=== PATIENT | female | born 1975 | race Two or more races ===

== ENCOUNTER 2017-01-07 18:24 | Emergency (ER) | payer OTHER ==
--- NOTE | ~2017-01-07 | CR72 ---
[facility] A Service of [facility] & [facility] RADIOLOGY TEXT RESULTS PATIENT: LISSET ARNDT LOCATION: [facility] : 73 UNIT #: [id number] AGE: [address]: Raman Steinberg MD SEX: F ORDER DR: [id number] [facility] [address] [place], [place] [address] [id number] E MR#: [id number] Acc #: [id number] NAME: LISSET ARNDT : 1975 SEX: F STUDY DATE/TIME: 01/07/2017 20:42 UNIT: [facility] ROOM: STUDY DESCRIPTION: CR Chest Single View Portable Attending Physician: Raman Steinberg M.D. Ordering Physician: Raman Steinberg M.D. Primary Care Physician: Shaheen Chen M.D. MEDICAL IMAGING REPORT This report is preliminary unless electronic signature is present EXAM AP portable chest, 01/07/2017 at 20:42 HISTORY Chest pain and congestion since yesterday. COMPARISON AP portable chest, 07/23/2012 FINDINGS No acute airspace disease. Heart size is within normal limits. No pleural effusion, pneumothorax or acute osseous abnormalities. IMPRESSION No acute chest findings. No significant change from 07/23/2012. Dictated by... Earnestine Dillard M.D. THIS IS AN ELECTRONICALLY VERIFIED REPORT Earnestine Dillard M.D. at 01/08/2017 7:01 PM LORENZO/campos TD: 01/08/2017 12:59 JOB #: [id number] MEDICAL IMAGING REPORT COPY
--- NOTE | ~2017-01-07 | CT71 ---
[facility] A Service of [facility] RADIOLOGY TEXT RESULTS PATIENT: LISSET ARNDT LOCATION: [facility] : 73 UNIT #: [id number] AGE: [address]: Raman Steinberg MD SEX: F ORDER DR: [id number] [place] [id number] [facility]. [place], [place] [address] [id number] E MR#: [id number] Acc #: [id number] NAME: LISSET ARNDT : 1975 SEX: F STUDY DATE/TIME: 01/07/2017 19:31 UNIT: [facility] ROOM: STUDY DESCRIPTION: CT Head Wo Contrast Attending Physician: Raman Steinberg M.D. Ordering Physician: Raman Steinberg M.D. Primary Care Physician: Shaheen Chen M.D. MEDICAL IMAGING REPORT This report is preliminary unless electronic signature is present EXAM CT Head, 01/07/2017 HISTORY Headache started last night. Worsening also pain in chest. TECHNIQUE This CT exam was performed with one or more of the following radiation dose reduction techniques: automatic exposure control, adjustment of mA and/or kV according to patient size, and iterative reconstruction. FINDINGS CT head performed from skull base through vertex without intravenous contrast. No prior CTs of the head for comparison. The brainstem is unremarkable. The cerebellum and cerebral hemispheres show normal locke matter-white matter differentiation. No hemorrhage. No evidence of acute cortical ischemia. The midline structures are nondisplaced. The basal ganglia are intact. The ventricles, cisterns and sulci are normal in size and contour. No intra or extraaxial mass effect or abnormal intracranial fluid collection. Visualized intraorbital soft tissues unremarkable. The visualized paranasal sinuses and mastoid air cells are clear. IMPRESSION Normal CT of the head. If the patient has ongoing neurologic symptoms, consider followup imaging, preferably with MRI if the patient is a candidate. Dictated by... Ron Browne M.D. THIS IS AN ELECTRONICALLY VERIFIED REPORT [facility] A Service of [facility] RADIOLOGY TEXT RESULTS PATIENT: LISSET ARNDT [id number] 73 UNIT #: [id number] AGE: [address]: Raman Steinberg MD SEX: F ORDER DR: Ron Browne M.D. at 01/09/2017 4:25 PM Alicia TD: 01/08/2017 11:50 JOB #: [id number] MEDICAL IMAGING REPORT COPY
--- NOTE | ~2017-01-07 | EKG ---
PATIENT: LISSET ARNDT UNIT #: [id number] Ventricular Rate: 64 BPM Atrial Rate: 64 BPM P-R Interval: 132 ms QRS Duration: 74 ms Q-T Interval: 436 ms QTC Calculation(Bezet): 449 ms P Cozad: 42 degrees Calculated R Cozad: -16 degrees Calculated T Cozad: -6 degrees Diagnosis Line: Normal sinus rhythm Diagnosis Line: Moderate voltage criteria for LVH, may be normal Diagnosis Line: variant Diagnosis Line: Borderline ECG Diagnosis Line: Diagnosis Line: Confirmed by GUI FERRER MD ([id number]) on Diagnosis Line: 01/10/2017 4:01:35 PM INTERPRETING MD: CARISSA FOURNIER
[~2017-01-07 18:24] MED LIST: ACETAMINOPHEN650 M1 PO; AMLODIPINE BESYL5 MG PO; BENICAR HCT 40-1 TAB PO; BENICAR20 MG PO; METOPROLOL SUCC25 MG PO
[2017-01-07 18:44] LABS: BASOPHIL# 0.1 X10e3 (0-0.3); BASOPHIL% 0.6 % (0-2.5); EOSINOPHIL# 0.2 X10e3 (0-0.7); EOSINOPHIL% 1.5 % (0.0-7.0); HEMATOCRIT 43.1 % (35.0-45.0); HEMOGLOBIN 14.5 gm/dL (12.0-16.0); LYMPHOCYTE# 3.3 X10e3 (1.0-3.5); LYMPHOCYTE% 32.1 % (17.0-45.0); MEAN CELL VOLUME 87.5 FL (83-96); MEAN CORPUSCULAR HEMOGLOBIN 29.4 PG (28-34); MEAN CORPUSCULAR HGB CONC 33.6 g/dL (30-36); MEAN PLATELET VOLUME 9.5 FL (6.5-11.5); MONOCYTE# 0.7 X10e3 (0-1.0); MONOCYTE% 6.7 % (3.0-12.0); NEUTROPHIL% 59.1 % (40-75); PLATELET COUNT 267 X10e3 (140-420); RED BLOOD COUNT 4.92 X10e (3.90-5.30); RED CELL DISTRIBUTION WIDTH 12.9 % (11.0-15.5); WHITE BLOOD COUNT 10.2 X10e3 (4.0-10.5)
[2017-01-07 18:53] LABS: POC - CKMB <1.0 ng/mL (0.0-7.9); POC - TROPONIN <0.05 ng/mL (<=0.05)
[2017-01-07 18:56] LABS: DIFF IND NO
[2017-01-07 19:06] LABS: ALBUMIN SERUM 4.4 g/dL (3.5-5.0); ALKALINE PHOSPHATASE 67 U/L (32-92); ALT (SGPT) 19 U/L (10-40); AST (SGOT) 18 U/L (10-42); BILIRUBIN, DIRECT 0.1 mg/dL (0.0-0.2); BILIRUBIN,INDIRECT 0.5 mg/dL (0.0-0.9); BILIRUBIN,TOTAL 0.6 mg/dL (0.2-2.0); BLOOD UREA NITROGEN 18 mg/dL (9-23); BUN/CREATININE RATIO 25.71; CARBON DIOXIDE 22 mmol/L (22-31); CHLORIDE 104 mmol/L (100-111); CREATININE SERUM 0.7 mg/dL (0.6-1.4); GLOM FILT RATE Estimated ABOVE60 mL/min (>60); GLUCOSE FASTING 86 mg/dL (70-110); POTASSIUM 4.4 mmol/L (3.5-5.1); PROTEIN TOTAL SERUM 7.8 g/dL (6.0-8.3); SODIUM 131 mmol/L (135-145)
[2017-01-07 20:12] LABS: POC - CKMB <1.0 ng/mL (0.0-7.9); POC - TROPONIN <0.05 ng/mL (<=0.05)
[2017-01-07 21:16] LABS: INFLUENZA A NEG (NEG); INFLUENZA B NEG (NEG)
== END 2017-01-07 21:30 | disposition home or self-care (01) ==
LOC: CED 18:24
PROVIDERS: Emergency Medicine
DX: R07.89 Other chest pain (principal); J06.9 Acute upper respiratory infection, unspecified; R51 Headache; Z91.041 Radiographic dye allergy status; Z88.8 Allergy status to other drugs, medicaments and biological substances
CPT/HCPCS: 36415; 70450; 71010; 80048; 80076; 82553; 84484; 84703; 85025; 87804; 93005; 99284

== ENCOUNTER 2017-02-01 22:20 | Emergency (ER) | payer OTHER ==
--- NOTE | ~2017-02-01 | CR126 ---
[facility] A Service of [facility] & [facility] RADIOLOGY TEXT RESULTS PATIENT: LISSET ARNDT LOCATION: [facility] : 73 UNIT #: [id number] AGE: [address]: Yuli Esqueda MD SEX: F ORDER DR: [id number] [facility] [address] [place], [place] [address] [id number] E MR#: [id number] Acc #: [id number] NAME: LISSET ARNDT : 1975 SEX: F STUDY DATE/TIME: 02/01/2017 22:44 UNIT: [facility] ROOM: STUDY DESCRIPTION: CR Foot Complete Min 3 View Lt Attending Physician: Yuli Esqueda M.D. Ordering Physician: Yuli Esqueda M.D. Primary Care Physician: Shaheen Chen M.D. MEDICAL IMAGING REPORT This report is preliminary unless electronic signature is present EXAM Left foot 3 views, 02/01/2017 HISTORY Foot pain after fall down stairs today. FINDINGS 3 views of the left foot demonstrate normal bone alignment. No fracture, joint space narrowing or dislocation. Moderate sized posterior and plantar calcaneal spurs. IMPRESSION 1. No acute findings. No fracture. 2. Satisfactory bone alignment. 3. Posterior and plantar calcaneal spurs. Dictated by... Donte Telles M.D. THIS IS AN ELECTRONICALLY VERIFIED REPORT Donte Telles M.D. at 02/02/2017 4:36 PM DFL/maxine TD: 02/02/2017 00:22 JOB #: [id number] MEDICAL IMAGING REPORT Page 1 of 1 COPY
--- NOTE | ~2017-02-01 | CR21 ---
[facility] A Service of [facility] & [facility] RADIOLOGY TEXT RESULTS PATIENT: LISSET ARNDT LOCATION: [facility] : 73 UNIT #: [id number] AGE: [address]: Yuli Esqueda MD SEX: F ORDER DR: [id number] [facility] [address] [place], [place] [address] [id number] E MR#: [id number] Acc #: [id number] NAME: LISSET ARNDT : 1975 SEX: F STUDY DATE/TIME: 02/01/2017 22:40 UNIT: [facility] ROOM: STUDY DESCRIPTION: CR Ankle Min 3 Views Rt Attending Physician: Yuli Esqueda M.D. Ordering Physician: Yuli Esqueda M.D. Primary Care Physician: Shaheen Chen M.D. MEDICAL IMAGING REPORT This report is preliminary unless electronic signature is present EXAM Right ankle, 3 views COMPARISON 3 views of the left ankle on the same date. INDICATIONS 41-year-old female with right ankle pain after falling down the stairs today. FINDINGS Moderate sized enthesophyte at the Achilles attachment of the calcaneus. Bones are anatomically aligned. No evidence of acute fracture. IMPRESSION 1. No acute fracture or dislocation of the right ankle. 2. Auui-vj-sgnhstmz Achilles enthesopathy. Dictated by... Kolton Menendez M.D. THIS IS AN ELECTRONICALLY VERIFIED REPORT Kolton Menendez M.D. at 02/05/2017 10:00 PM PAIGE/elaine TD: 02/02/2017 00:20 JOB #: [id number] MEDICAL IMAGING REPORT Page 1 of 1 COPY
--- NOTE | ~2017-02-01 | CR181 ---
[facility] A Service of [facility] RADIOLOGY TEXT RESULTS PATIENT: LISSET ARNDT LOCATION: [facility] : 73 UNIT #: [id number] AGE: [address]: Yuli Esqueda MD SEX: F ORDER DR: [id number] [place] [address] [facility]. [place], [place] [address] [id number] E MR#: [id number] Acc #: [id number] NAME: LISSET ARNDT : 1975 SEX: F STUDY DATE/TIME: 02/01/2017 22:31 UNIT: [facility] ROOM: STUDY DESCRIPTION: CR Lumbar Spine 2 or 3 Views Attending Physician: Yuli Esqueda M.D. Ordering Physician: Yuli Esqueda M.D. Primary Care Physician: Shaheen Chen M.D. MEDICAL IMAGING REPORT This report is preliminary unless electronic signature is present EXAM Lumbar spine, 3 views COMPARISON May 14, 2007. INDICATIONS 41-year-old female with low back pain after falling down the stairs today. FINDINGS There is nonspecific diffuse gaseous distension of small bowel and colon throughout the abdomen, perhaps reflecting ileus. Cholecystectomy. Evaluation of the lumbar spine is mildly limited by overlapping bowel gas. Lumbar spine is anatomically aligned. Mild disc height loss at L5-S1. IMPRESSION 1. No acute fracture or dislocation of the lumbar spine. 2. Mild disc height loss at L5-S1. 3. Prior cholecystectomy. 4. Diffuse gaseous distension of small bowel loops and colon throughout the abdomen, perhaps reflecting ileus. Dictated by... Kolton Menendez M.D. THIS IS AN ELECTRONICALLY VERIFIED REPORT Kolton Menendez M.D. at 02/05/2017 9:59 PM [facility] TD: 02/02/2017 00:17 JOB #: [id number] [facility] A Service of [facility] RADIOLOGY TEXT RESULTS PATIENT: LISSET ARNDT LOCATION: [facility] : 73 UNIT #: [id number] AGE: [address]: Yuli Esqueda MD SEX: F ORDER DR: MEDICAL IMAGING REPORT Page 1 of 1 COPY
--- NOTE | ~2017-02-01 | CR127 ---
[facility] A Service of [facility] & [facility] RADIOLOGY TEXT RESULTS PATIENT: LISSET ARNDT LOCATION: [facility] : 73 UNIT #: [id number] AGE: [address]: Yuli Esqueda MD SEX: F ORDER DR: [id number] [facility] [address] [place], [place] [address] [id number] E MR#: [id number] Acc #: [id number] NAME: LISSET ARNDT : 1975 SEX: F STUDY DATE/TIME: 02/01/2017 22:41 UNIT: [facility] ROOM: STUDY DESCRIPTION: CR Foot Complete Min 3 View Rt Attending Physician: Yuli Esqueda M.D. Ordering Physician: Yuli Esqueda M.D. Primary Care Physician: Shaheen Chen M.D. MEDICAL IMAGING REPORT This report is preliminary unless electronic signature is present EXAM Right foot, 3 views HISTORY Fell down stairs today. Foot pain. FINDINGS 3 views of the right foot demonstrate transverse fracture through the distal tip of the medial cuneiform extending to the base of the first metatarsal at the first TMT joint, with approximately 2 mm distal displacement of the distal fragment. Remainder of the bone alignment is satisfactory. No dislocation. No opaque soft tissue foreign body. Dictated by... Donte Telles M.D. THIS IS AN ELECTRONICALLY VERIFIED REPORT Donte Telles M.D. at 02/02/2017 4:36 PM DFL/psc TD: 02/02/2017 00:13 JOB #: [id number] MEDICAL IMAGING REPORT Page 1 of 1 COPY
--- NOTE | ~2017-02-01 | CR20 ---
[facility] A Service of [facility] & [facility] RADIOLOGY TEXT RESULTS PATIENT: LISSET ARNDT LOCATION: [facility] : 73 UNIT #: [id number] AGE: [address]: Yuli Esqueda MD SEX: F ORDER DR: [id number] [facility] [address] [place], [place] [address] [id number] E MR#: [id number] Acc #: [id number] NAME: LISSET ARNDT : 1975 SEX: F STUDY DATE/TIME: 02/01/2017 22:43 UNIT: [facility] ROOM: STUDY DESCRIPTION: CR Ankle Min 3 Views Lt Attending Physician: Yuli Esqueda M.D. Ordering Physician: Yuli Esqueda M.D. Primary Care Physician: Shaheen Chen M.D. MEDICAL IMAGING REPORT This report is preliminary unless electronic signature is present EXAM Left ankle 3 views, 02/01/2017 HISTORY Ankle pain after fall today. FINDINGS 3 views of the left ankle demonstrate normal bone alignment. No fracture, joint space narrowing or dislocation. Moderate sized posterior and plantar calcaneal spurs. IMPRESSION No acute finding. No fracture. Dictated by... Donte Telles M.D. THIS IS AN ELECTRONICALLY VERIFIED REPORT Donte Telles M.D. at 02/02/2017 4:36 PM DFWilmar/maxine TD: 02/02/2017 00:21 JOB #: [id number] MEDICAL IMAGING REPORT Page 1 of 1 COPY
--- NOTE | ~2017-02-01 | CR243 ---
[facility] A Service of [facility] & [facility] RADIOLOGY TEXT RESULTS PATIENT: LISSET ARNDT LOCATION: [facility] : 73 UNIT #: [id number] AGE: [address]: Yuli Esqueda MD SEX: F ORDER DR: [id number] [facility] [address] [place], [place] [address] [id number] E MR#: [id number] Acc #: [id number] NAME: LISSET ARNDT : 1975 SEX: F STUDY DATE/TIME: 02/01/2017 22:37 UNIT: [facility] ROOM: STUDY DESCRIPTION: CR Thoracic Spine 3 Views Attending Physician: Yuli Esqueda M.D. Ordering Physician: Yuli Esqueda M.D. Primary Care Physician: Shaheen Chen M.D. MEDICAL IMAGING REPORT This report is preliminary unless electronic signature is present EXAM Thoracic spine, 3 views, 02/01/2017 COMPARISON None. INDICATION 41-year-old female with upper back pain after falling down stairs today. FINDINGS There is multilevel moderate anterior osteophyte formation of the thoracic vertebral bodies. The thoracic spine is anatomically aligned. No evidence of acute fracture. There has been prior cholecystectomy. Nonspecific gaseous distension of multiple bowel loops in the upper abdomen. IMPRESSION No evidence of acute fracture or dislocation of the thoracic spine. Dictated by... Kolton Menendez M.D. THIS IS AN ELECTRONICALLY VERIFIED REPORT Kolton Menendez M.D. at 02/05/2017 10:06 PM Camille TD: 02/02/2017 00:12 JOB #: [id number] MEDICAL IMAGING REPORT Page 1 of 1 COPY
== END 2017-02-02 01:35 | disposition home or self-care (01) ==
LOC: CED 22:20
DX: S92.311A Displaced fracture of first metatarsal bone, right foot, initial encounter for closed fracture (principal); S29.9XXA Unspecified injury of thorax, initial encounter; S49.91XA Unspecified injury of right shoulder and upper arm, initial encounter; Z88.6 Allergy status to analgesic agent; Z88.8 Allergy status to other drugs, medicaments and biological substances; W10.9XXA Fall (on) (from) unspecified stairs and steps, initial encounter; Y92.009 Unspecified place in unspecified non-institutional (private) residence as the place of occurrence of the external cause
CPT/HCPCS: 29515; 29540; 72072; 72100; 73610; 73630; 96374; 96375; 99284; J2270; J2405

== ENCOUNTER → 2017-02-13 | Outpatient (CLI) | payer OTHER ==
--- NOTE | ~2017-02-13 | CT95 ---
[facility] A Service of [facility] & [facility] RADIOLOGY TEXT RESULTS PATIENT: LISSET ARNDT LOCATION: [facility] : 73 UNIT #: [id number] AGE: [address]: Oleg Zapien MD SEX: F ORDER DR: [id number] [facility] [address] [place], [place] [address] [id number] O MR#: [id number] Acc #: [id number] NAME: LISSET ARNDT : 1975 SEX: F STUDY DATE/TIME: 02/13/2017 10:06 UNIT: [facility] ROOM: STUDY DESCRIPTION: CT Lower Ext Rt Wo Cont Attending Physician: Oleg Zapien M.D. Referring Physician: Oleg Zapien M.D. Ordering Physician: Oleg Zapien M.D. Primary Care Physician: Shaheen Chen M.D. MEDICAL IMAGING REPORT This report is preliminary unless electronic signature is present EXAM CT right foot (direct coronal imaging) with subsequent sagittal and axial reconstructions without contrast 02/13/2017 COMPARISON Right ankle and foot radiographs 02/01/2017. HISTORY Order states right foot fracture. History sheet states patient slipped in the house on 01/30/2017. No previous surgery. TECHNIQUE This CT examination was performed with one or more of the following radiation dose reduction techniques: automatic exposure control, adjustment of mA and/or kV according to patient size, and iterative reconstruction. FINDINGS There is a nondisplaced intraarticular fracture of the dorsal corner of the medial cuneiform. The fracture fragment has a triangular configuration on the sagittal reconstruction and measures 9 mm (craniocaudal). There is a nondisplaced intraarticular fracture of the plantar base of the first metatarsal eccentric to the lateral side. There is a nondisplaced intraarticular fracture of the medial plantar aspect of the second metatarsal base at the second tarsal - metatarsal joint. No intermediate cuneiform fracture is noted. Tiny calcific fracture fragments medial to the second metatarsal base fracture in the region of the Lisfranc ligament are concerning for small ligamentous avulsion fracture fragments involving the central component of STS. [facility] A Service of [facility] & [facility] RADIOLOGY TEXT RESULTS PATIENT: LISSET ARNDT LOCATION: [facility] : 73 UNIT #: [id number] AGE: [address]: Oleg Zapien MD SEX: F ORDER DR: the ligament. There is minimal if any widening of the first proximal intermetatarsal space. The third, fourth, and fifth tarsometatarsal joints are normal. There is no gross tendon pathology. There is no high-grade muscle atrophy in the midfoot or hindfoot. Mild forefoot intrinsic muscle atrophy is suspected. Correlate for causes such as peripheral neuropathy. IMPRESSION 1. Nondisplaced intraarticular fractures of the first and second metatarsal bases and the medial cuneiform detailed above. Tiny calcifications in the region of the central component of the Lisfranc ligament are concerning for Lisfranc ligamentous injury. There is minimal if any widening of the first intermetatarsal space. 2. Suspected forefoot muscle atrophy most commonly on the basis of peripheral neuropathy. Dictated by... Noris Grullon M.D. THIS IS AN ELECTRONICALLY VERIFIED REPORT Noris Grullon M.D. at 02/15/2017 11:51 AM JONATHAN/saud TD: 02/14/2017 14:16 JOB #: [id number] MEDICAL IMAGING REPORT Page 1 of 1 COPY
== END | disposition home or self-care (01) ==
LOC: CCAT 08:56
DX: S92.311A Displaced fracture of first metatarsal bone, right foot, initial encounter for closed fracture (principal); S92.321A Displaced fracture of second metatarsal bone, right foot, initial encounter for closed fracture
CPT/HCPCS: 73700